=== PATIENT | female | born 1955 | race Caucasian/White ===

== ENCOUNTER → 2022-09-20 | Outpatient (CLI) | payer OTHER ==
[~2022-09-20] MED LIST: MOTRIN800 MG PO
== END | disposition home or self-care (01) ==
LOC: MAMMO 13:29
PROVIDERS: ATTEND Nurse Practitioner Women's Health
DX: Z12.31 Encounter for screening mammogram for malignant neoplasm of breast (principal)

== ENCOUNTER → 2023-02-25 | Outpatient (CLI) | payer OTHER ==
[~2023-02-25] MED LIST changes: +AMLODIPINE BESYL5 MG PO; +ASPIRIN81 M1 PO; +ATORVASTATIN CA40 M1 PO; +CLOPIDOGREL75 MG PO; +LEVOFLOXACIN750 M2 PO; +VITAMIN D325 MCG PO
== END | disposition home or self-care (01) ==
LOC: US 12:00
PROVIDERS: ATTEND Internal Medicine Nephrology
DX: M79.605 Pain in left leg (principal); I10 Essential (primary) hypertension

== ENCOUNTER → 2023-09-30 | Outpatient (CLI) | payer OTHER | END | disposition home or self-care (01) | LOC: RAD 09-12 07:30 → LAB 00:10 → RAD 08:00 | PROVIDERS: ATTEND Internal Medicine Nephrology | DX: E78.49 Other hyperlipidemia (principal); N95.0 Postmenopausal bleeding; E55.9 Vitamin D deficiency, unspecified; I10 Essential (primary) hypertension; Z90.710 Acquired absence of both cervix and uterus; Z78.0 Asymptomatic menopausal state ==

== ENCOUNTER → 2024-03-14 | Outpatient (CLI) | payer OTHER ==
[2024-03-14 14:47] LABS: BASO # 0.1 10*3/uL (0.0-0.1); BASO % 0.8 % (0.0-1.0); EOS # 0.1 10*3/uL (0.0-0.4); EOS % 1.6 % (1.0-4.0); LYMPH % 25.7 % (27.0-41.0); MEAN CELL VOLUME 97.8 fl (81.0-99.0); MEAN CORPUSCULAR HGB 30.4 pg (27.0-31.0); MEAN CORPUSCULAR HGB CONC 31.1 g/dl (33.0-37.0); MEAN PLATELET VOLUME 9.6 fl (9.6-12.3); MONO # 0.8 10*3/uL (0.1-1.0); MONO % 10.3 % (3.0-9.0); NEUT # 4.8 10*3/uL (2.3-7.9); NEUT % 61.5 % (47.0-73.0); PLATELET COUNT AUTOMATED 297 10*3/uL (130-400); RED CELL DISTRI WIDTH 14.3 % (0-14.5); WHITE BLOOD COUNT 7.7 10*3/uL (4.8-10.8)
[2024-03-14 15:11] LABS: VITAMIN D, 25-HYDROXY 47.6 ng/mL (30-100)
[2024-03-14 15:13] LABS: ALKALINE PHOSPHATASE 114 U/L (46-116); BUN 16 mg/dl (9-23); CHLORIDE 107 mmol/L (98-107); CHOLESTEROL 143 mg/dL (<200); FREE T4 1.32 ng/dl (0.89-1.76); LDL CHOLESTEROL 56 mg/dL (9-159); SGPT/ALT 25 U/L (5-49); TOTAL PROTEIN 7.4 gm/dL (6.0-8.0); TRIGLYCERIDES 63 mg/dl (<150)
== END | disposition home or self-care (01) ==
LOC: US 12:30 → LAB 12:34
PROVIDERS: ATTEND Internal Medicine Nephrology
DX: M77.32 Calcaneal spur, left foot (principal); M17.12 Unilateral primary osteoarthritis, left knee; M79.605 Pain in left leg; I10 Essential (primary) hypertension; E78.49 Other hyperlipidemia; I63.9 Cerebral infarction, unspecified; E55.9 Vitamin D deficiency, unspecified; M79.89 Other specified soft tissue disorders; R20.0 Anesthesia of skin; R60.0 Localized edema